=== PATIENT | female | born 1955 | race Caucasian/White ===

== ENCOUNTER 2019-10-16 15:44 | Inpatient (IN) | payer MEDICAID ==
[~2019-10-16] VITALS: Ht 157.5 cm; Wt 59.4 kg
[2019-10-16 16:00] VITALS: BP 145/84
--- NOTE | 2019-10-16 16:03 | NUR ---
TO LOBBY A/W BED AMBULATORY
--- NOTE | 2019-10-16 16:15 | NUR ---
PT AMBULATED TO ER CHAIR A
--- NOTE | 2019-10-16 16:51 | NUR ---
Patient transferred to bed 11 for further care. RN evaluating patient at bedside.
--- NOTE | 2019-10-16 16:51 | NUR ---
PA Thomson evaluating patient at bedside.
--- NOTE | 2019-10-16 17:10 | NUR ---
64 y/o f c/c sob and cough for several days per pt. pt does not know her allergies. hx dm, dialysis, kidney disease. pt does not recall her rx. denies n/v/d. side rail x1. pt a/ox4. welsh speaking.
[2019-10-16 17:51] LABS: BASOPHILS # (AUTO) 0.1 K/uL (0.00-0.22); BASOPHILS % (AUTO) 0.8 % (0.0-2.0); EOSINOPHILS # (AUTO) 0.6 K/uL (0-0.4); EOSINOPHILS % (AUTO) 7.4 % (0.0-4.0); HEMATOCRIT 26.2 % (36-48); HEMOGLOBIN 8.1 g/dL (12.0-16.0); LYMPHOCYTES # (AUTO) 0.8 K/uL (2.5-16.5); MEAN CORPUSCULAR HEMOGLOBIN 26 pg (27-31); MEAN CORPUSCULAR HGB CONC 31 g/dL (33-37); MEAN CORPUSCULAR VOLUME 82.5 fL (80-94); MONOCYTES # (AUTO) 0.6 K/uL (0.8-1.0); MONOCYTES % (AUTO) 8.2 % (1.7-9.3); NEUTROPHILS # (AUTO) 5.7 K/uL (1.8-7.7); NEUTROPHILS % (AUTO) 73.6 % (42.2-75.2); PLATELET COUNT (AUTO) 302 K/uL (140-450); RED BLOOD CELL COUNT(AUTO) 3.17 MIL/uL (4.20-5.40); RED CELL DISTRIBUTION WIDTH 18.8 % (11.6-13.7); WHITE BLOOD COUNT (AUTO) 7.7 K/uL (4.8-10.8)
[2019-10-16] MEDS ORDERED: LORazepam 2 MG/ML VIAL IVP ONE (18:25)
[2019-10-16 18:36] LABS: ALBUMIN 3.3 g/dL (3.4-5.0); TOTAL BILIRUBIN 0.5 mg/dL (0.0-1.0)
[2019-10-16 18:40] LABS: CREATININE 8.4 mg/dL (0.6-1.3)
[2019-10-16] MEDS ORDERED: ALBUTEROL 0.083% 2.5 MG/3 ML NEBU INH ONE (18:45)
[2019-10-16] MEDS ORDERED: INSULIN REGULAR, HUMAN 100 UNIT/ML VIAL IVP ONE (18:45)
[2019-10-16] MEDS ORDERED: DEXTROSE 10% 250 ML IV SCH (18:45)
--- NOTE | 2019-10-16 18:48 | NUR ---
per patient on dyalisis: m/w/f access: YENI
[2019-10-16] MEDS ORDERED: DOCUSATE SODIUM 100 MG GELCAP PO PRN (19:05)
[2019-10-16] MEDS ORDERED: ONDANSETRON 4 MG/2 ML VIAL IM/IVP PRN (19:05)
[2019-10-16] MEDS ORDERED: ACETAMINOPHEN 325 MG TAB PO PRN (19:05)
[2019-10-16] MEDS ORDERED: HYDROcodone/APAP 5/325 MG 1 TAB TAB PO PRN (19:05)
[2019-10-16 19:07] LABS: PROTHROMBIN TIME 12.7 secs (10.8-13.4)
--- NOTE | 2019-10-16 19:12 | NUR ---
REPORT GIVEN FROM SENTHIL RYAN. RT AT BESIDE. BREATHING TX GIVEN.
--- NOTE | 2019-10-16 19:21 | NUR ---
REPORT GIVEN TO SHELBY BANKS FOR CONTINUITY OF CARE
--- NOTE | 2019-10-16 19:45 | NUR ---
PT RESTING IN BED SITTING UPRIGHT WITH EYES OPEN. PT ON NC 2L/MIN. O2SAT @ 98%. PT RESPIRATIONS ARE EVEN AND UNLABORED. SKIN IS WARM AND DRY TO TOUCH. PT UNABLE TO REMEMBER MEDICATIONS BUT DAUGHTER IS BRINGING OVER MEDICATIONS FROM HOME. PT PREFERS OCCITAN SPEAKING BUT CAN COMMUNICATE IN WELSH WELL. SKIN INTACE. DIALYSIS SHUNT AT L UPPER EXTREMITY. BURIT HEARD AND THRILL FELT. IV SITE IT PATENT. NO REDNESS, SWELLING, OR PAIN NOTED.
--- NOTE | 2019-10-16 20:10 | NUR ---
Patient will be admitted to care of . Admited to ICU. Will go to room 1. Belongings list completed. Report to LORRIE.
--- NOTE | 2019-10-16 20:15 | NUR ---
ADMITTED THIS 64 YEAR OLD FEMALE PATIENT PER YESSICA FROM ER WITH COMPLAINT OF COUGH AND SOB WITH THE ADMITTING DIAGNOSIS OF PLEURAL EFFUSION AND TELE STATUS. ASSISTED IN ICU 1; HOOKED TO HEAD OF ACADEMIC TECHNOLOGY, SCOPE SHOWS ON SINUS RHYTHM WITH OCCASIONAL PAC'S NOTED. PATIENT IS ALERT AND ORIENTED, TURKISH SPEAKING. WITH G 20 IV CANNULA ON RIGHT AC AND WITH AV SHUNT ON LEFT UPPER ARM. ABDOMEN IS SOFT, HYPOACTIVE BOWEL SOUNDS. NOTED WITH RESTLESS LESS WHICH MAYBE DUE TO NEUROPATHY PER MD.
[2019-10-16 20:30] VITALS: BP 166/61
[2019-10-16 20:39] LABS: MAGNESIUM 2.6 mg/dL (1.8-2.4); PHOSPHORUS 5.9 mg/dL (2.5-4.9); THYROID STIMULATING HORMONE 1.32 uIU/mL (0.34-3.74)
[2019-10-16] MEDS ORDERED: DEXTROSE 50% 50 ML SYR IVP PRN (20:50)
[2019-10-16] MEDS ORDERED: hydrALAZINE 20 MG/ML VIAL IVP PRN (20:50)
--- NOTE | 2019-10-16 21:00 | NUR ---
FOR HEMODIALYSIS TONIGHT ORDERED; CONSENT TAKEN AND SIGNED BY THE PATIENT HERSELF.
[2019-10-16] MEDS: NACL 0.9% 1,000 ML IV SCH (21:07)
[2019-10-16] MEDS ORDERED: SEVE800T6 PO (21:23)
[2019-10-16] MEDS ORDERED: FURO-570 PO (21:23)
[2019-10-16] MEDS ORDERED: HYDR-1098 PO (21:23)
[2019-10-16] MEDS ORDERED: CARV3.12 PO (21:23)
[2019-10-16] MEDS ORDERED: GABA300C PO (21:23)
[2019-10-16] MEDS ORDERED: AMLO10TA PO (21:23)
[2019-10-16] MEDS ORDERED: SODIUM POLYSTYRENE 15 GM/60 ML UDBTL PR SCH (21:30)
[2019-10-16] MEDS ORDERED: CALCIUM GLUCONATE 10% 1,000 MG in NACL 0.9% 50 ML IV SCH (21:30)
--- NOTE | 2019-10-16 21:30 | NUR ---
ACCUCHECK DONE, RESULT IS 72, REPORTED TO RESIDENT DIRECTOR FIXED INCOME , DR. DUMONT; ORDERED TO GIVE D50% 50 ML IV PUSH NOW; GIVEN ORDERED.
[2019-10-16] MEDS: BLOOD GLUCOSE MONITORING 1 DEV DEV FS SCH (21:49)
[2019-10-16] MEDS ORDERED: CALCIUM GLUCONATE 10% 1000 MG/10 ML VIAL ONE (21:56)
[2019-10-17] VITALS (7 sets, daily range): BP systolic 112–162; BP diastolic 51–96
--- NOTE | 2019-10-17 01:00 | NUR ---
HEMODIALYSIS DONE BY HD NURSE AT BEDSIDE AND REMOVED 3 LITERS.
[2019-10-17] MEDS ORDERED: MELATONIN 3 MG TAB PO PRN (01:25)
--- NOTE | 2019-10-17 01:30 | NUR ---
COMPLAINED OF INSOMNIA AND WAS ABLE TO SLEEP SINCE LAST NIGHT; REFERRED TO DR. DUMONT, WITH ORDER TO GIVE MELATONIN TAB PO; GIVEN ORDERED.
[2019-10-17] MEDS ORDERED: MELATONIN 3 MG TAB ONE (01:39)
--- NOTE | 2019-10-17 02:45 | NUR ---
PATIENT STILL NOT SLEEPING; UP AND ABOUT FROM THE BED AND COMPLAINING OF ITCHINESS/PRURITUS ; REFERRED TO DR. DUMONT, WITH ORDER TO GIVE BENADRY TAB PO.; GIVEN
--- NOTE | 2019-10-17 05:25 | NUR ---
TRANSFERRED TO TELEMETRY UNIT IN ROOM 123B PER WHEELCHAIR IN FAIR CONDITION; ENDORSED TO WEIGHTER JOANNA FOR CONTINUITY OF CARE.
--- NOTE | 2019-10-17 05:30 | NUR ---
RECEIVED PT FROM ICU NURSE, LORRIE. PT CAME IN WHEELCHAIR. NO SOB OR ANY RESPIRATORY DISTRESS NOTED. BREATHING EVEN AND UNLABORED WITH 2LPM O2 NC. SKIN TEAR NOTED ON BACK. PHOTO TAKEN. COVERED WITH FORM DRESSING. SKIN WARM AND DRY TO TOUCH. AV SHUNT NOTED ON LAWRENCE. VITAL SIGN CHECKED. BED IN LOW POSITION, CALL LIGHT WITHIN REACH.
[2019-10-17 06:02] LABS: BASOPHILS % (AUTO) 0.5 % (0.0-2.0); EOSINOPHILS # (AUTO) 0.5 K/uL (0-0.4); EOSINOPHILS % (AUTO) 6.7 % (0.0-4.0); HEMATOCRIT 24.2 % (36-48); HEMOGLOBIN 7.6 g/dL (12.0-16.0); LYMPHOCYTES # (AUTO) 0.6 K/uL (2.5-16.5); LYMPHOCYTES % (AUTO) 9.6 % (20.5-51.1); MEAN CORPUSCULAR HEMOGLOBIN 26 pg (27-31); MEAN CORPUSCULAR HGB CONC 31 g/dL (33-37); MEAN CORPUSCULAR VOLUME 82.2 fL (80-94); MONOCYTES # (AUTO) 0.7 K/uL (0.8-1.0); MONOCYTES % (AUTO) 9.9 % (1.7-9.3); NEUTROPHILS # (AUTO) 4.9 K/uL (1.8-7.7); NEUTROPHILS % (AUTO) 73.3 % (42.2-75.2); PLATELET COUNT (AUTO) 261 K/uL (140-450); RED BLOOD CELL COUNT(AUTO) 2.95 MIL/uL (4.20-5.40); RED CELL DISTRIBUTION WIDTH 18.1 % (11.6-13.7); WHITE BLOOD COUNT (AUTO) 6.7 K/uL (4.8-10.8)
[2019-10-17 06:03] LABS: ANION GAP 14.7 (8-16); POTASSIUM 3.7 mmol/L (3.5-5.1)
[2019-10-17 06:10] LABS: CREATININE 4.3 mg/dL (0.6-1.3)
[2019-10-17 06:12] LABS: CHOL/HDL RATIO 3.4 (1-4.5)
[2019-10-17] MEDS: BLOOD GLUCOSE MONITORING 1 DEV DEV FS SCH ×4 (06:20→21:15)
--- NOTE | 2019-10-17 06:20 | NUR ---
BS CHECKED, 118. NO INSULIN COVERAGE NEEDED. PT IN STABLE CONDITION.
[2019-10-17 06:35] LABS: PHOSPHORUS 4.1 mg/dL (2.5-4.9)
--- NOTE | 2019-10-17 07:20 | NUR ---
RECEIVED PT FROM EXECUTIVE PASTRY CHEF NURSEJOANNA PT IS ASLEEP AND ON A SIDE LYING [POSITION, ON O2 2L NC, RESPIRATION IS EVEN, PERIPHERAL LINE ON THE RT HAND G. 22 WITH IVF NS INFUSING AT 20ML/HR, LEFT AV SHUNT FOR DIALYSIS ACCESS IN TAC, RESTRICTED ARM FOR BP AND VENIPUNCTURE, NO SIGN OF DISTRESS NOTED, ALERT ORIENTEDX3.
--- NOTE | 2019-10-17 08:35 | NUR ---
PATIENT HAS BEEN SCREENED AND CATEGORIZED HIGH NUTRITION RISK. PATIENT WILL BE SEEN WITHIN 1-2 DAYS OF ADMISSION. 10/17/19-10/18/[address]
[2019-10-17] MEDS: SEVELAMER CARBONATE 800 MG TAB PO SCH ×3 (08:40→16:17)
[2019-10-17] MEDS: hydrALAZINE 25 MG TAB PO SCH ×2 (08:48→21:15)
[2019-10-17] MEDS: FUROSEMIDE 40 MG TAB PO SCH (08:48)
--- NOTE | 2019-10-17 08:48 | NUR ---
PT WAS GIVEN THE AM SCHEDULED AM MEDICATION BUT BP MEDICATIONS WERE NOT GIVEN DUE TP PT'S BP IS ONLY 112/55, PULSE IS 64 MANUALLY, DR. ROBIN INFORMED.
[2019-10-17] MEDS: amLODIPine 5 MG TAB PO SCH (08:49)
[2019-10-17] MEDS: CARVEDILOL 3.125 MG TAB PO SCH ×2 (08:50→16:19)
--- NOTE | 2019-10-17 08:50 | NUR ---
CHEST ULTRASOUND WAS BEING DONE TO PT NOW.
--- NOTE | 2019-10-17 11:49 | NUR ---
DC PLANNIN YRS OLD FEMALE PATIENT WAS ADMITTED FROM HOME WITH A DX OF PLEURAL EFFUSION PT HAS A HX OF ESRD ON HEMODIALYSIS MWF ,DM AND HTN. CXRAY SHOWED CHF ECHO PENDING AND STARTED LASIX FOR FLUID OVERLOAD,CONTINUE HOME MEDS, CONSULTED WITH MEDICAL TECHNICIANS . DC PLAN TO GO HOME WHEN STABLE CM TO FOLLOW. Addendum: 10/19/19 at 1352 by Elizabeth Calvert CM DC PLANNING: HEMODIALYSIS TODAY FEELS MUCH BETTER CLEAR FROM PULMO STABLE TO DISCHARGE. DC HOME WITH FAMILY.
[2019-10-17] MEDS: INSULIN LISPRO SLIDING SCALE 100 UNITS/ML VIAL SUBQ PRN ×2 (12:20→21:23)
--- NOTE | 2019-10-17 12:20 | NUR ---
PT WAS GIVEN ORAL MEDICATION AND 2 UNITS INSULIN ON THE RT UA FOR BLOOD GLUCOSE OF 164, PT IS EATING LUNCH AT THIS TIME.
--- NOTE | 2019-10-17 12:56 | NUR ---
PT REFUSED TO HAVE DIALYSIS NOW PER DIALYSIS NURSE, DR. ROBIN ON THE BEDSIDE AND ASSESSED PT, PT VERBALIZED THAT SHE FEELS FINE AND IS BREATHING FINE WELL.
--- NOTE | 2019-10-17 16:19 | NUR ---
PT, BLOOD GLUCOSE WAS CHECKED AND IS 100 AND NO INSULIN COVERAGE NEEDED, ORAL MEDICATIONS AND BP MEDICATION WERE GIVEN, BP IS 158/54, PULSE IS 63 MANUALLY, NO SIGN OF DISTRESS NOTED AND WILL MONITOR PT.
--- NOTE | 2019-10-17 20:00 | NUR ---
PT IS IN BED .AWAKE,ALERT AND ORIENTED.RESP.UNLABORED.LUNGS CLEAR.TELE ON AND SHOWING SR.NO C/O PAIN NOW.CALL LIGHT IN REACH.WILL CONTINUE MONITORING.
--- NOTE | 2019-10-17 20:55 | NUR ---
RECEIVED PT ON 2L NC WITH SP02 OF 97% AND A CLEAR DIMINISHED BREATH SOUNDS ON THE UPPER LOBES. NO RESPIRATORY DISTRESS NOTED AT THIS TIME. WILL CONTINUE TO MONITOR PT.
[2019-10-17] MEDS: NACL 0.9% 1,000 ML IV SCH (21:00)
[2019-10-17] MEDS: GABAPENTIN 300 MG CAP PO SCH (21:15)
[2019-10-18] VITALS: BP 160/59
--- NOTE | 2019-10-18 00:10 | NUR ---
SLEEPING.NO S/S OF ANY DISTRESS NOTED.CALL LIGHT IN REACH.WILL HAVE DIALYSIS TODAY.HR IS SB.
[2019-10-18 04:00] VITALS: BP 158/58
--- NOTE | 2019-10-18 04:00 | NUR ---
SLEEPING.NO DISTRESS NOTED AT PRESENT TIME.HR IS SR.
[2019-10-18 06:07] LABS: HEPATITIS A ANTIBODY IGM Negative (Negative); HEPATITIS B CORE AB TOTAL Negative (Negative); HEPATITIS B SURFACE ANTIBODY Reactive (.); HEPATITIS B SURFACE ANTIGEN Negative (Negative)
[2019-10-18 06:17] LABS: ANION GAP 15.4 (8-16); CARBON DIOXIDE 26.4 mmol/L (21-32); POTASSIUM 4.8 mmol/L (3.5-5.1)
[2019-10-18 06:24] LABS: CREATININE 6.2 mg/dL (0.6-1.3)
[2019-10-18 06:27] LABS: MAGNESIUM 2.2 mg/dL (1.8-2.4); PHOSPHORUS 5.6 mg/dL (2.5-4.9)
[2019-10-18 06:29] LABS: BASOPHILS % (AUTO) 0.6 % (0.0-2.0); EOSINOPHILS # (AUTO) 0.6 K/uL (0-0.4); EOSINOPHILS % (AUTO) 7.3 % (0.0-4.0); HEMATOCRIT 24.4 % (36-48); HEMOGLOBIN 7.8 g/dL (12.0-16.0); LYMPHOCYTES # (AUTO) 0.7 K/uL (2.5-16.5); LYMPHOCYTES % (AUTO) 9.8 % (20.5-51.1); MEAN CORPUSCULAR HEMOGLOBIN 26 pg (27-31); MEAN CORPUSCULAR HGB CONC 32 g/dL (33-37); MEAN CORPUSCULAR VOLUME 82.7 fL (80-94); MONOCYTES # (AUTO) 0.6 K/uL (0.8-1.0); MONOCYTES % (AUTO) 7.7 % (1.7-9.3); NEUTROPHILS # (AUTO) 5.6 K/uL (1.8-7.7); NEUTROPHILS % (AUTO) 74.6 % (42.2-75.2); PLATELET COUNT (AUTO) 264 K/uL (140-450); RED BLOOD CELL COUNT(AUTO) 2.95 MIL/uL (4.20-5.40); RED CELL DISTRIBUTION WIDTH 18.1 % (11.6-13.7); WHITE BLOOD COUNT (AUTO) 7.5 K/uL (4.8-10.8)
[2019-10-18 07:11] LABS: FOLIC ACID 6.4 ng/mL (>3.0)
--- NOTE | 2019-10-18 07:25 | NUR ---
RECEIVED REPORT FROM PHOTOGRAPHY INTERN NURSE. PATIENT LYING DOWN IN BED SLEEPING, AROUSABLE BY VOICE. NO DISTRESS NOTED. DENIES ANY PAIN. SCHEDULED FOR HD TODAY. AAOX4, CALM, COOPERATIVE, SKIN COLOR APPROPRIATE TO ETHNICITY, WARM TO TOUCH. SKIN INTACT. LEFT UPPER ARM AV FISTULA NOTED. REVIEWED PLAN OF CARE WITH PATIENT. PATIENT VERBALIZED UNDERSTANDING. SAFETY MEASURES IN PLACE, CALL LIGHT WITHIN REACH. WILL CONTINUE TO MONITOR.
--- NOTE | 2019-10-18 07:34 | NUR ---
CALLED FROM LAB FOR CREATININE=6.2.DIDN'T CALL MD .PT WILL HAVE DIALYSIS TODAY.DIALYSIS NURSE AWARE.REPORT GIVEN TO AM SHELBY VELAZQUEZ.
[2019-10-18] MEDS: BLOOD GLUCOSE MONITORING 1 DEV DEV FS SCH ×4 (07:53→20:48)
[2019-10-18 08:00] VITALS: BP 161/54
[2019-10-18] MEDS: CARVEDILOL 3.125 MG TAB PO SCH ×2 (08:00→17:50)
[2019-10-18] MEDS: FUROSEMIDE 40 MG TAB PO SCH (09:00)
[2019-10-18] MEDS: amLODIPine 5 MG TAB PO SCH (09:00)
[2019-10-18] MEDS: hydrALAZINE 25 MG TAB PO SCH ×2 (09:00→20:55)
[2019-10-18] MEDS: SEVELAMER CARBONATE 800 MG TAB PO SCH ×3 (09:27→17:50)
[2019-10-18] MEDS ORDERED: EPOETIN ALFA 10,000 UNITS/ML VIAL SUBQ SCH (09:30)
--- NOTE | 2019-10-18 09:33 | NUR ---
SCHEDULED MEDICATIONS DUE GIVEN. HD IN PROGRESS. WILL CONTINUE TO MONITOR.
[2019-10-18 12:00] VITALS: BP 127/50
[2019-10-18] MEDS: INSULIN LISPRO SLIDING SCALE 100 UNITS/ML VIAL SUBQ PRN ×2 (12:56→20:57)
--- NOTE | 2019-10-18 13:02 | NUR ---
PATIENT LYING DOWN IN BED SLEEPING, AROUSABLE BY VOICE. HEMODIALYSIS FINISHED, 2.3L OUT. SCHEDULED MEDICATIONS DUE GIVEN. WILL CONTINE TO MONITOR.
--- NOTE | 2019-10-18 13:26 | NUR ---
Consulted with Dr. Robledo regarding follow up appointments for the patient. He said he will follow up on it.
--- NOTE | 2019-10-18 15:14 | NUR ---
10/18/19 RD INITIAL ASSESSMENT COMPLETED PLEASE REFER TO NUTRITION ASSESSMENT UNDER CARE ACTIVITY FOR ESTIMATED NUTRITIONAL NEEDS. 1. CONTINUE CCHO 60GM AND RENAL DIET WITH FLD 1.5 L/DAY TOLERATED 2. ENCOURAGE INCREASING PO INTAKE 3. RD TO FOLLOW-UP 3-5 DAYS, MODERATE RISK VIVIANA GIRALDO, RD
[2019-10-18 16:00] VITALS: BP 116/49
--- NOTE | 2019-10-18 17:51 | NUR ---
PATIENT LYING DOWN IN BED SLEEPING, AROUSABLE BY VOICE. NO DISTRESS NOTED. DENIES ANY PAIN. SCHEDULED MEDICATIONS DUE GIVEN. WILL CONTINUE TO MONITOR.
--- NOTE | 2019-10-18 19:30 | NUR ---
GAVE REPORT TO METAL BASE BLOCKER NURSE FOR CONTINUITY OF CARE. PATIENT IN STABLE CONDITION.
--- NOTE | 2019-10-18 20:00 | NUR ---
RECEIVED PATIENT REPORT AT BEDSIDE. PATIENT, AWAKE, ALERT AND ORIENTED. PT DENIES SOB BUT WITH INTERMITTENT DRY COUGH. PT ON 3L O2. O2 SAT AT 95%. PT DENIES PAIN. LEFT AV FISTULA WITH THRILL AND BRUIT. NO IV LINE IN PLACE. PT ON TELE MONITORING. BED LOWERED WITH CALL LIGHT WITHIN REACH. WILL CONTINUE TO MONITOR
[2019-10-18 20:52] VITALS: BP 159/53
[2019-10-18] MEDS: GABAPENTIN 300 MG CAP PO SCH (20:55)
[2019-10-18] MEDS: NACL 0.9% 1,000 ML IV SCH (21:00)
--- NOTE | 2019-10-18 22:15 | NUR ---
RECEIVED PT ON ROOM AIR WITH SP02 OF 95% AND A CLEAR BREATH SOUNDS ON THE UPPER LOBES. NO RESPIRATORY DISTRESS NOTED AT THIS TIME. WILL CONTINUE TO MONITOR PT.
[2019-10-19 00:43] VITALS: BP 145/50
--- NOTE | 2019-10-19 01:47 | NUR ---
PT ASLEEP IN BED. NO S/S OF DISTRESS NOTED
[2019-10-19 04:30] VITALS: BP 106/55
[2019-10-19 06:10] LABS: BASOPHILS % (AUTO) 0.7 % (0.0-2.0); EOSINOPHILS # (AUTO) 0.4 K/uL (0-0.4); EOSINOPHILS % (AUTO) 6.9 % (0.0-4.0); HEMATOCRIT 23.8 % (36-48); HEMOGLOBIN 7.4 g/dL (12.0-16.0); LYMPHOCYTES # (AUTO) 0.8 K/uL (2.5-16.5); LYMPHOCYTES % (AUTO) 13.9 % (20.5-51.1); MEAN CORPUSCULAR HEMOGLOBIN 26 pg (27-31); MEAN CORPUSCULAR HGB CONC 31 g/dL (33-37); MEAN CORPUSCULAR VOLUME 82.6 fL (80-94); MONOCYTES # (AUTO) 0.5 K/uL (0.8-1.0); MONOCYTES % (AUTO) 8.4 % (1.7-9.3); NEUTROPHILS # (AUTO) 4.2 K/uL (1.8-7.7); NEUTROPHILS % (AUTO) 70.1 % (42.2-75.2); PLATELET COUNT (AUTO) 246 K/uL (140-450); RED BLOOD CELL COUNT(AUTO) 2.88 MIL/uL (4.20-5.40); RED CELL DISTRIBUTION WIDTH 18.1 % (11.6-13.7)
[2019-10-19] MEDS: BLOOD GLUCOSE MONITORING 1 DEV DEV FS SCH ×2 (06:43→12:29)
--- NOTE | 2019-10-19 06:59 | NUR ---
BLOOD SUGAR 91. PT AWAKE AND ALERT. NO S/S OF DISTRESS AT THIS TIME
--- NOTE | 2019-10-19 07:26 | NUR ---
PT REPORT GIVEN AT BEDSIDE. PT ENDORSED IN STABLE CONDITION
[2019-10-19 07:27] LABS: PHOSPHORUS 4.6 mg/dL (2.5-4.9)
--- NOTE | 2019-10-19 07:38 | NUR ---
RECEIVED PATIENT REPORT FROM GRASSLAND CONSERVATIONIST AT BEDSIDE FOR CONTINUITY OF CARE. PATIENT IS AAOX4, ABLE TO VERBALIZED NEEDS WELL. PT DENIES SOB BUT WITH INTERMITTENT DRY COUGH. PT ON 2L O2. O2 SAT AT 96%. PT DENIES PAIN. LEFT AV FISTULA WITH THRILL AND BRUIT. RIGHT IV 22G ON HAND. PT ON TELE MONITORING. BED LOWERED WITH CALL LIGHT WITHIN REACH. ALL SAFETY MEASURES IN PLACE. WILL MONITOR PT CLOSELY.
[2019-10-19 08:00] VITALS: BP 165/53
[2019-10-19 08:50] LABS: ANION GAP 14.5 (8-16); CARBON DIOXIDE 24.9 mmol/L (21-32); POTASSIUM 4.4 mmol/L (3.5-5.1)
[2019-10-19 09:08] LABS: CREATININE 5.3 mg/dL (0.6-1.3)
[2019-10-19] MEDS: CARVEDILOL 3.125 MG TAB PO SCH (09:09)
[2019-10-19] MEDS: hydrALAZINE 25 MG TAB PO SCH (09:09)
[2019-10-19] MEDS: FUROSEMIDE 40 MG TAB PO SCH (09:10)
[2019-10-19] MEDS: amLODIPine 5 MG TAB PO SCH (09:10)
[2019-10-19] MEDS: SEVELAMER CARBONATE 800 MG TAB PO SCH ×2 (09:11→13:52)
--- NOTE | 2019-10-19 09:31 | NUR ---
ADMINISTERED MORNING MEDS TO PT. PT TOLERATED WELL. ALL NEEDS MET.
--- NOTE | 2019-10-19 11:34 | NUR ---
PT RESTING IN BED WATCHING TV. ALL NEEDS MET.
[2019-10-19 12:00] VITALS: BP 148/54
--- NOTE | 2019-10-19 13:21 | NUR ---
PT SITTING IN BEDSIDE CHAIR TALKING ON PHONE. ALL NEEDS MET.
--- NOTE | 2019-10-19 15:47 | NUR ---
PT RESTING IN BED. ALL NEEDS MET.
--- NOTE | 2019-10-19 16:15 | NUR ---
PT DISCHARGED HOME FOR CONTINUITY OF CARE. PT SIGNED AND VERBALIZED UNDERSTANDING OF DC TEACHING. IV REMOVED BY PT. UPON ENTERING ROOM PT HAD BLOODY SHEETS, FLOOR, AND BED. SHE STATED THAT SHE REMOVED IN B/C SHE WAS LEAVING. I TOLD HER TO NOT REMOVE IT HERSELF DUE TO POSSIBLE INJURY. ALL PT PERSONAL BELONGINGS TAKEN WITH PT. ARM BAND REMOVED AND PLACED IN SHRED BIN. PT LEFT IN STABLE CONDITION ACCOMPANIED BY SISTER.
== END 2019-10-19 16:20 | disposition home or self-care (01) | DRG 194 ==
LOC: MED 15:44 → MIC 19:11 → MTU 10-17 05:25
PROVIDERS: ADMIT General Practice; ATTEND General Practice
PROC: 5A1D70Z Performance of Urinary Filtration, Intermittent, Less than 6 Hours Per Day (ICD-10-PCS; 2019-10-16)
PROC: 5A1D70Z Performance of Urinary Filtration, Intermittent, Less than 6 Hours Per Day (ICD-10-PCS; principal; 2019-10-17)
DX: I13.2 Hypertensive heart and chronic kidney disease with heart failure and with stage 5 chronic kidney disease, or end stage renal disease (principal); E11.22 Type 2 diabetes mellitus with diabetic chronic kidney disease; E11.42 Type 2 diabetes mellitus with diabetic polyneuropathy; D68.9 Coagulation defect, unspecified; E44.0 Moderate protein-calorie malnutrition; E87.5 Hyperkalemia; N18.6 End stage renal disease; I42.9 Cardiomyopathy, unspecified; I50.43 Acute on chronic combined systolic (congestive) and diastolic (congestive) heart failure; D63.1 Anemia in chronic kidney disease; F41.9 Anxiety disorder, unspecified; Z68.24 Body mass index [BMI] 24.0-24.9, adult; Z99.2 Dependence on renal dialysis; Z91.15 Patient's noncompliance with renal dialysis; Z80.9 Family history of malignant neoplasm, unspecified
CPT/HCPCS: 36415; 36600; 71045; 76604; 80048; 80053; 82140; 82607; 82728; 82746; 82803; 82948; 83036; 83540; 83735; 83880; 84100; 84134; 84443; 84484; 85025; 85045; 85384; 85610; 85730; 86704; 86706; 86708; 86709; 86803; 87040; 87081; 87340; 90935; 93005; 96374; 96375; 99285; J0610; J0885; J1815; J2060; J7030; J7613; Q0092; Q0163

== ENCOUNTER 2021-12-03 18:09 | Inpatient (IN) | payer MEDICAID, SELFPAY ==
[~2021-12-03] VITALS: Ht 150.4 cm; Wt 56.7 kg
[~2021-12-03 18:09] MED LIST: AMLO10TA PO; CARV3.12 PO; FURO-570 PO; GABA300C PO; HYDR-1098 PO; SEVE800T6 PO
[2021-12-03 18:22] VITALS: BP 134/54
--- NOTE | 2021-12-03 18:42 | NUR ---
Patient wheelchair assisted to bed 8.
[2021-12-03] MEDS ORDERED: MAGNESIUM CITRATE 300 ML BTL PO ONE (18:55)
--- NOTE | 2021-12-03 19:25 | NUR ---
PATIENT TAKEN TO CT VIA WHEELCHAIR
--- NOTE | 2021-12-03 19:26 | NUR ---
Pt report given to SHELBY DUBON. Transfer of care at this time.
[2021-12-03 19:55] LABS: BASOPHILS % (AUTO) 0.6 % (0.0-2.0); EOSINOPHILS # (AUTO) 0.1 K/uL (0-0.4); EOSINOPHILS % (AUTO) 0.9 % (0.0-4.0); HEMATOCRIT 26.3 % (36-48); HEMOGLOBIN 8.5 g/dL (12.0-16.0); LYMPHOCYTES # (AUTO) 0.8 K/uL (2.5-16.5); LYMPHOCYTES % (AUTO) 9.4 % (20.5-51.1); MEAN CORPUSCULAR HEMOGLOBIN 27 pg (27-31); MEAN CORPUSCULAR HGB CONC 32 g/dL (33-37); MEAN CORPUSCULAR VOLUME 82.3 fL (80-94); MONOCYTES # (AUTO) 0.6 K/uL (0.8-1.0); MONOCYTES % (AUTO) 7.4 % (1.7-9.3); NEUTROPHILS # (AUTO) 7.1 K/uL (1.8-7.7); NEUTROPHILS % (AUTO) 81.7 % (42.2-75.2); PLATELET COUNT (AUTO) 286 K/uL (140-450); RED CELL DISTRIBUTION WIDTH 16.6 % (11.6-13.7); WHITE BLOOD COUNT (AUTO) 8.7 K/uL (4.8-10.8)
--- NOTE | 2021-12-03 19:59 | NUR ---
confirmed labs already drawn.
[2021-12-03 20:18] LABS: ALBUMIN 3.1 g/dL (3.4-5.0); CARBON DIOXIDE 31.3 mmol/L (21-32); POTASSIUM 5.3 mmol/L (3.5-5.1); TOTAL BILIRUBIN 0.4 mg/dL (0.0-1.0)
[2021-12-03 20:23] LABS: CREATININE 7.6 mg/dL (0.6-1.3)
--- NOTE | 2021-12-03 20:23 | NUR ---
critical lab: creatinine 7.6. Dr. Thibodeaux made aware. no new orders at this time.
--- NOTE | 2021-12-03 22:27 | NUR ---
COVID swab sent to lab
[2021-12-03] MEDS ORDERED: SITA100T8 PO (22:30)
[2021-12-03] MEDS ORDERED: diphenhydrAMINE 50 MG/ML VIAL IVP ONE (22:50)
[2021-12-03] MEDS ORDERED: SODIUM POLYSTYRENE 15 GM/60 ML UDBTL PO ONE (22:50)
[2021-12-03] MEDS ORDERED: METOCLOPRAMIDE 10 MG/2 ML INJ VIAL IVP ONE (22:50)
[2021-12-03] MEDS ORDERED: MORPHINE SULFATE 4 MG/ML SYR IVP SCH (23:30)
[2021-12-03] MEDS ORDERED: NACL 0.9% 1,000 ML IV ONE (23:30)
[2021-12-04] MEDS ORDERED: diphenhydrAMINE 50 MG/ML VIAL ONE (00:27)
[2021-12-04] MEDS ORDERED: METOCLOPRAMIDE 10 MG/2 ML INJ VIAL ONE (00:27)
[2021-12-04] MEDS ORDERED: SODIUM POLYSTYRENE 15 GM/60 ML UDBTL ONE (00:29)
[2021-12-04] MEDS ORDERED: INSULIN REGULAR, HUMAN 100 UNIT/ML VIAL IVP SCH (02:45)
[2021-12-04] MEDS ORDERED: DEXTROSE 50% 50 ML SYR IVP SCH (02:45)
--- NOTE | 2021-12-04 02:48 | NUR ---
Received orders from Dr. Beaulieu to d/c IV fluids. Dr. Beaulieu made aware [place] PO was held and pt is having bowel movements without medication. Per Dr. Beaulieu, give Insulin 10 units IV, Dextrose 50ml IV, and repeat BMP at 5am.
[2021-12-04] MEDS ORDERED: MORPHINE SULFATE 4 MG/ML SYR IVP PRN (03:55)
[2021-12-04 06:56] LABS: ANION GAP 17.1 (8-16); CARBON DIOXIDE 30.6 mmol/L (21-32); POTASSIUM 5.7 mmol/L (3.5-5.1)
--- NOTE | 2021-12-04 07:25 | NUR ---
Report and continuation of care received from SHELBY Vargas.
--- NOTE | 2021-12-04 07:25 | NUR ---
handoff to Kelvin Maki. Pt had 3 bowel movements during shift. Insulin IV and Dextrose helding pending BMP results. Kelvin Maki aware and will continue care.
--- NOTE | 2021-12-04 07:28 | NUR ---
Received patient awake resting in semi-fowlers position with rn cardiac in place. VSS; BP 148/55 RR 14 HR 71 SpO2 97% on room air. Pt denies pain. Bed locked in lowest position, side rails x 2 for pt safety, call light in reach.
[2021-12-04 07:36] LABS: CREATININE 8.1 mg/dL (0.6-1.3)
--- NOTE | 2021-12-04 07:40 | NUR ---
Paged Dr. Pereyra advising of Cr 8.1 and requested orders for Potassium 5.7.
--- NOTE | 2021-12-04 07:45 | NUR ---
Contacted [facility] states bedside report OK.
[2021-12-04] MEDS ORDERED: ONDANSETRON 4 MG/2 ML VIAL IVP PRN (07:50)
[2021-12-04] MEDS ORDERED: SODIUM PHOS / POTASSIUM PHOS 1 PKT PDR PO PRN (07:50)
[2021-12-04] MEDS ORDERED: DOCUSATE SODIUM 100 MG GELCAP PO PRN (07:50)
[2021-12-04] MEDS ORDERED: MAG SULF 2000 MG/WATER PREMIX 50 ML IV PRN (07:50)
[2021-12-04] MEDS ORDERED: ACETAMINOPHEN 325 MG TAB PO PRN (07:50)
[2021-12-04] MEDS ORDERED: POTASSIUM CHLORIDE 10 MEQ TABER PO PRN (07:50)
[2021-12-04] MEDS ORDERED: HYDROcodone/APAP 5/325 MG 1 TAB TAB PO PRN (07:50)
[2021-12-04] MEDS ORDERED: MORPHINE SULFATE 2 MG/ML SYR IVP PRN (07:50)
[2021-12-04] MEDS ORDERED: LORazepam 2 MG/ML VIAL IM/IVP PRN (07:50)
[2021-12-04] MEDS ORDERED: ZOLPIDEM 5 MG TAB PO PRN (07:50)
--- NOTE | 2021-12-04 08:05 | NUR ---
Bedside report given to SHELBY Cheema.
--- NOTE | 2021-12-04 08:05 | NUR ---
Patient will be admitted to care of Dr. Pereyra. Admited to Telemetry. Will go to room 119B. Belongings list completed. Report to SHELBY Cheema.
[2021-12-04 08:10] VITALS: BP 140/42
[2021-12-04] MEDS ORDERED: SODIUM ZIRCONIUM CYCLOSILICATE 10 GM POWD.PACK PO SCH (08:10)
--- NOTE | 2021-12-04 08:10 | NUR ---
RECEIVED PT FROM ED, BEDSIDE REPORT GIVEN. PT IS ALERT, AWAKE, S[place]TH SUDANESE SPEAKING ONLY. ABLE TO AMBULATE WITH ASSIST. BREATHING SYMMETRICAL ON ROOM AIR. DENIES PAIN AT THIS TIME. WITH LAWRENCE AV FISTULA. RIGHT HAND 20G WITH NS AT 100CC. CALL LIGHT WITHIN REACH. ALL SAFETY MEASURES IN PLACE.
[2021-12-04] MEDS ORDERED: METOCLOPRAMIDE 10 MG/2 ML INJ VIAL IVP PRN (08:15)
--- NOTE | 2021-12-04 09:45 | NUR ---
DR HARP CALLED AND SPOKE WITH HIM, HE REVIEWED PT'S CHART AND STATED NO SURGICAL INTERVENTION AT ALL FOR THE PT, PT HAS NO BOWEL OBSTRUCTION JUST CONSTIPATION SHOWED ON SMALL BOWEL XRAY ON 12/04. DR BARRIGA MADE AWARE, ORDER FOR CLEAR LIQUID DIET AND ADVANCE TOLERATED.
--- NOTE | 2021-12-04 10:29 | NUR ---
PATIENT HAS BEEN SCREENED AND CATEGORIZED MODERATE NUTRITION RISK. PATIENT WILL BE SEEN WITHIN 3-5 DAYS OF ADMISSION. / MARIA L QUINN RD
[2021-12-04] MEDS: NACL 0.9% 1,000 ML IV SCH ×3 (10:40→20:55)
[2021-12-04 11:47] LABS: CHOL/HDL RATIO 4.3 (1-4.5); FREE T4 (FREE THYROXINE) 1.14 ng/dL (0.76-1.46); PHOSPHORUS 4.7 mg/dL (2.5-4.9); THYROID STIMULATING HORMONE 2.74 uIU/mL (0.34-3.74)
[2021-12-04 12:00] VITALS: BP 154/55
--- NOTE | 2021-12-04 12:15 | NUR ---
CALENDER WIND UP TENDER REPORTED PT WANTING TO GO HOME AND WANTS TO LEAVE AMA. SPOKE WITH PT, STATED SHE'LL STAY AND WILL WAIT FOR
[2021-12-04 14:39] LABS: PROTHROMBIN TIME 11.6 secs (10.8-13.4)
[2021-12-04] MEDS: DOCUSATE SODIUM 100 MG GELCAP PO SCH ×2 (14:45→20:55)
--- NOTE | 2021-12-04 15:35 | NUR ---
PT IN BED AWAKE. BREATHING SYMMETRICAL. DENIES PAIN AT THIS TIME. PT REFUSED COLACE MEDICATION. CALL LIGHT WITHIN REACH. ALL SAFETY MEASURES IN PLACE.
[2021-12-04 16:00] VITALS: BP 152/51
--- NOTE | 2021-12-04 17:46 | NUR ---
PT ASLEEP IN BED. BREATHING SYMMETRICAL ON ROOM AIR. FLACC O. CALL LIGHT WITHIN REACH. FREQUENT ROUNDS DONE. ALL SAFETY MEASURES IN PLACE.
--- NOTE | 2021-12-04 18:22 | NUR ---
PT VERBALIZING WANTING TO GO HOME AMA. PT SEEN BY DR MEZA (DOWEL PIN MAN) AND PER NEPHROLOGY STANDPOINT CLEAR TO GO HOME, PT VERBALIZED TO DOWEL PIN MAN RELIEF FROM ABDOMINAL PAIN AFTER BEING ABLE TO HAVE A LOT OF BOWEL MOVEMENT BUT PT ISN'T MEDICALLY CLEARED TO GO HOME AT THIS TIME. EXPLAINED RISKS TO PT WHEN LEAVING AMA, ALSO SPOKE TO TIFFANI (SISTER) WITH PT'S PERMISSION AND EXPLAINED WELL. PT CHANGED HER MIND AND STATED SHE WILL STAY. TRIED TO CALL VANNA (SISTER) BUT UNABLE TO REACH. DR BARRIGA MADE AWARE, DR MEZA ALSO MADE AWARE.
--- NOTE | 2021-12-04 19:26 | NUR ---
ENDORSED PT TO GRAPHIC DESIGN MANAGER NURSE. PT IN STABLE CONDITION
[2021-12-04 20:00] VITALS: BP 153/61
--- NOTE | 2021-12-04 20:00 | NUR ---
RECEIVED BEDSIDE REPORT EARLIER FROM DAY RN FOR CONTINUITY OF CARE. RECEIVED THE PATIENT A/A/OX3, SITTING UP AT THE EDGE OF THE BED. PT NOT IN ANY DISTRESS. NO COMPLAIN AT THIS TIME. IVF INFUSING ORDERED. VSS, AFEBRILE, SATING 99% ON RA. JUNCTIONAL RHYTHM ON TELE, HR-73. FALL PRECAUTION IMPLEMENTED. INSTRUCTED THE PT NOT TO GET OUT BED WITHOUT ASSISTANCE. PT VERBALIZED UNDERSTANDING BUT NEEDED REINFORCEMENT. CALL LIGHT WITHIN REACH. WILL CONTINUE POC AND MONITORING.
--- NOTE | 2021-12-04 20:35 | NUR ---
PATIENT IV GOT PULLED OUT WHEN PATIENT TRIED TO GET OUT OF BED. PATIENT REFUSED TO PLACE A NEW IV LINE AT THIS TIME. WILL TRY AGAIN LATER.
--- NOTE | 2021-12-04 22:00 | NUR ---
ALL DUE MEDICATIONS GIVEN ORDERED. NO ADVERSE DRUG REACTION NOTED AND NO COMPLAIN FROM THE PATIENT. WILL CONTINUE OBSERVATION.
[2021-12-05] VITALS: BP 140/58
--- NOTE | 2021-12-05 | NUR ---
PATIENT VITAL SIGNS STABLE, AFEBRILE, SATING 93% ON RA. JUNCTIONAL RHYTHM ON SUPERVISOR FILTRATION, HR-67. NO COMPLAIN OF PAIN AT THIS TIME. CALL LIGHT WITHIN REACH. WILL CONTINUE POC.
--- NOTE | 2021-12-05 02:23 | NUR ---
PATIENT ASLEEP AT THIS TIME. VISIBLE CHEST RISE AND FALL NOTED. NO SIGN AND SYMPTOMS OF DISTRESS NOTED. WILL CONTINUE MONITORING.
[2021-12-05 04:00] VITALS: BP 143/56
--- NOTE | 2021-12-05 05:25 | NUR ---
CALLED ELECTRICAL ENGINEERING TEACHER YOSEPH TO NOTIFY OF THE PATIENT HD ORDER FOR TODAY. SPOKE WITH YOSEPH AND AWARE. WILL CONSENT THE PATIENT FOR THE HEMODIALYSIS.
[2021-12-05 06:28] LABS: BASOPHILS # (AUTO) 0.1 K/uL (0.00-0.22); BASOPHILS % (AUTO) 0.7 % (0.0-2.0); EOSINOPHILS # (AUTO) 0.4 K/uL (0-0.4); EOSINOPHILS % (AUTO) 4.9 % (0.0-4.0); HEMATOCRIT 26.7 % (36-48); HEMOGLOBIN 8.7 g/dL (12.0-16.0); LYMPHOCYTES # (AUTO) 0.8 K/uL (2.5-16.5); LYMPHOCYTES % (AUTO) 11.6 % (20.5-51.1); MEAN CORPUSCULAR HEMOGLOBIN 27 pg (27-31); MEAN CORPUSCULAR HGB CONC 33 g/dL (33-37); MEAN CORPUSCULAR VOLUME 82.3 fL (80-94); MONOCYTES # (AUTO) 0.7 K/uL (0.8-1.0); MONOCYTES % (AUTO) 8.9 % (1.7-9.3); NEUTROPHILS # (AUTO) 5.4 K/uL (1.8-7.7); NEUTROPHILS % (AUTO) 73.9 % (42.2-75.2); PLATELET COUNT (AUTO) 307 K/uL (140-450); RED BLOOD CELL COUNT(AUTO) 3.24 MIL/uL (4.20-5.40); RED CELL DISTRIBUTION WIDTH 16.3 % (11.6-13.7); WHITE BLOOD COUNT (AUTO) 7.3 K/uL (4.8-10.8)
--- NOTE | 2021-12-05 06:35 | NUR ---
NO ACUTE EVENT THROUGHOUT THE NIGHT. PATIENT STABLE. NOT IN ANY DISTRESS. NO COMPLAIN AT THIS TIME. ALL NEEDS ATTENDED. CALL LIGHT WITHIN REACH. WILL ENDORSE THE PATIENT TO THE ONCOMING NURSE FOR CONTINUITY OF CARE.
--- NOTE | 2021-12-05 07:32 | NUR ---
Endorsed patient to day Rn for continuity of care. Patient stable. Signing off.
--- NOTE | 2021-12-05 07:36 | NUR ---
RECEIVED REPORT FROM PM SHIFT COR CONTINUITY OF CARE, PT APPEARS ASLEEP, STABLE, SAFETY MEASURES MAINTAINED, CALL LIGHT WITHIN REACH, NO ACUTE DISTRESS, WILL CONTINUE TO MONITOR
[2021-12-05 07:39] LABS: ANION GAP 15.6 (8-16); CARBON DIOXIDE 30.6 mmol/L (21-32); MAGNESIUM 2.8 mg/dL (1.8-2.4); POTASSIUM 5.2 mmol/L (3.5-5.1); TOTAL BILIRUBIN 0.4 mg/dL (0.0-1.0)
[2021-12-05 08:00] VITALS: BP 153/53
[2021-12-05 08:47] LABS: CREATININE 8.8 mg/dL (0.6-1.3)
[2021-12-05] MEDS: DOCUSATE SODIUM 100 MG GELCAP PO SCH (09:36)
[2021-12-05 12:00] VITALS: BP 154/62
--- NOTE | 2021-12-05 14:02 | NUR ---
DIALYSIS COMPLETE - 2.5 REMOVED. PT STATING SHE IS GETTING CHANGED AND LEAVING.
--- NOTE | 2021-12-05 14:03 | NUR ---
SPOKE TO DR BARRIGA TO INFORM HER PT IS ASKING FOR AMA FORM.
--- NOTE | 2021-12-05 14:32 | NUR ---
EXPLAINED THE RISK OF LEAVING AMA TO PATIENT, PATIENT STATED TO REMOVE HER IV SO SHE CAN GET DRESSED, FAMILY IS ON THEIR WAY TO PICK HER UP. PT SIGNED AMA PAPERWORK.
--- NOTE | 2021-12-05 14:42 | NUR ---
PTS FAMILY AT BEDSIDE, VSS BP 148/68, HR 82, RA 99%, NO ACUTE DISTRESS, HELPING PT CHANGE, WILL TAKE OUT IN WHEELCHAIR.
[2021-12-05] MEDS ORDERED: DOCU-300 PO (14:55)
[2021-12-05] MEDS ORDERED: DOCU-299 PO (14:56)
== END 2021-12-05 14:55 | disposition left against medical advice (07) | DRG 247 ==
LOC: MED 18:09 → MTU 23:40
PROVIDERS: ADMIT Student in an Organized Health Care Education/Training Program; ATTEND Student in an Organized Health Care Education/Training Program
PROC: 5A1D70Z Performance of Urinary Filtration, Intermittent, Less than 6 Hours Per Day (ICD-10-PCS; principal; 2021-12-05)
DX: K56.7 Ileus, unspecified (principal); N17.0 Acute kidney failure with tubular necrosis; I50.43 Acute on chronic combined systolic (congestive) and diastolic (congestive) heart failure; E11.22 Type 2 diabetes mellitus with diabetic chronic kidney disease; I13.2 Hypertensive heart and chronic kidney disease with heart failure and with stage 5 chronic kidney disease, or end stage renal disease; N18.6 End stage renal disease; E87.5 Hyperkalemia; Z20.822 Contact with and (suspected) exposure to COVID-19; Z79.899 Other long term (current) drug therapy; Z99.2 Dependence on renal dialysis; Z80.9 Family history of malignant neoplasm, unspecified
CPT/HCPCS: 36415; 71045; 74250; 80048; 80053; 82150; 83036; 83690; 83735; 83880; 84100; 84439; 84443; 84484; 85025; 85610; 85730; 87081; 96361; 96374; 97163-GP; 97530; 99285; J1200; J2765; J7030; Q0092